=== PATIENT | male | born 1990 | race American Indian/Alaskan Native ===

== ENCOUNTER 2020-03-14 23:45 | Emergency (ER) | payer BC ==
[2020-03-15] MEDS ORDERED: ACETAMINOPHEN 325 MG TAB ONE (00:34)
[2020-03-15] MEDS ORDERED: ACETAMINOPHEN 325 MG TAB PO ONE (00:42)
--- NOTE | 2020-03-15 00:53 | XRay Report ---
EXAMINATION: Left shoulder radiograph, 2 views, 03/14/2020 CLINICAL INFORMATION: Left shoulder pain COMPARISON: None. FINDINGS: There is no evidence of acute fracture or glenohumeral dislocation. No significant bony deg enerative changes are noted. Signer Name: Shazia Iglesias MD Signed: 03/15/2020 12:48 AM Workstation Name: [id number]
[2020-03-15] MEDS ORDERED: IBUPROFEN 600 MG TAB PO ONE (03:43)
[2020-03-15] MEDS ORDERED: oxyCODONE /ACETAMINOPHEN 5-325MG TAB PO ONE (03:43)
[2020-03-15] MEDS ORDERED: ONDANSETRON 4 MG ODT TAB PO ONE (03:43)
--- NOTE | 2020-03-15 04:22 | Emergency Department Report ---
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 Patient states that the symptoms started about 4 hours ago when he was playing with his children and he realized that his shoulder may have had a dislocation. Patient states that he then tried to reset the dislocated left shoulder before coming to the ED for evaluation. Patient states that he is unable to perform any active range of motion due to severe pain of the left shoulder. Patient denies fall, dizziness, syncope, neck pain, chest pain, shortness of breath, change in vision, syncope, numbness and tingling or weakness of left arm, back pain, change in vision, heavy lifting or fever and chills. MD Complaint: Injury to:: left, shoulder -: Sudden, hour(s) (6) Other Extremity Injury: Shoulder: Left (pain ) Other Injuries: none Handedness: left Place: home Severity scale (0 -10): 8 Improves With: none Worsens With: movement of extremity Context: sports-related injury (playing with children) Associated Symptoms: denies other symptoms. denies: weakness, numbness, neck pain, suspects foreign body, nausea/vomiting, heard/felt popping sensat - Related Data Previous Rx's Medication Instructions Recorded Last Taken Type Ibuprofen [Motrin] 800 mg PO Q8HR PRN #30 tablet 03/15/20 Unknown Rx methOCARBAMOL [Robaxin TAB] 500 mg PO BID PRN #20 tab 03/15/20 Unknown Rx traMADoL [Ultram] 50 mg PO Q6HR PRN #12 tablet 03/15/20 Unknown Rx Allergies Allergy/AdvReac Type Severity Reaction Status Date / Time No Known Allergies Allergy Unverified 03/15/20 00:08 ED Review of Systems ROS: Stated complaint: LEFT ARM DISLOCATED Other details as noted in HPI Constitutional: denies: chills, fever Eyes: denies: eye pain, eye discharge, vision change ENT: denies: ear pain, throat pain Respiratory: denies: cough, shortness of breath, wheezing Cardiovascular: denies: chest pain, palpitations Endocrine: no symptoms reported Gastrointestinal: denies: abdominal pain, nausea, diarrhea Genitourinary: denies: urgency, dysuria Musculoskeletal: arthralgia (Left shoulder pain). denies: back pain, joint swelling Skin: denies: rash, lesions Neurological: denies: headache, weakness, paresthesias Psychiatric: denies: anxiety, depression Hematological/Lymphatic: denies: easy bleeding, easy bruising ED Past Medical Hx - Past Medical History Previous Medical History?: Yes Additional medical history: Left shoulder Dislocation - Surgical History Past Surgical History?: No - Social History Smoking Status: Never Smoker Substance Use Type: None - Medications Home Medications: Home Medications Medication Instructions Recorded Confirmed Last Taken Type Ibuprofen [Motrin] 800 mg PO Q8HR PRN #30 tablet 03/15/20 Unknown Rx methOCARBAMOL [Robaxin TAB] 500 mg PO BID PRN #20 tab 03/15/20 Unknown Rx traMADoL [Ultram] 50 mg PO Q6HR PRN #12 tablet 03/15/20 Unknown Rx ED Physical Exam - General Limitations: No Limitations General appearance: alert, in no apparent distress - Head Head exam: Present: atraumatic, normocephalic, normal inspection - Eye Eye exam: Present: normal appearance, PERRL, EOMI Pupils: Present: normal accommodation - ENT ENT exam: Present: normal exam, normal orophraynx, mucous membranes moist, TM's normal bilaterally, normal external ear exam - Neck Neck exam: Present: normal inspection, full ROM - Respiratory Respiratory exam: Present: normal lung sounds bilaterally. Absent: respiratory distress, wheezes, rales, stridor, chest wall tenderness, accessory muscle use, prolonged expiratory - Cardiovascular Cardiovascular Exam: Present: regular rate, normal rhythm, normal heart sounds. Absent: systolic murmur, diastolic murmur, rubs, gallop - GI/Abdominal GI/Abdominal exam: Present: soft, normal bowel sounds. Absent: distended, guarding, rebound, hyperactive bowel sounds, hypoactive bowel sounds, organomegaly - Extremities Exam Extremities exam: Present: normal inspection, tenderness (Palpable left shoulder tenderness with limited range of motion due to pain), normal capillary refill. Absent: full ROM (Limited range of motion of left shoulder due to pain), pedal edema, joint swelling, calf tenderness - Back Exam Back exam: Present: normal inspection, tenderness. Absent: full ROM, muscle spasm, paraspinal tenderness, vertebral tenderness - Neurological Exam Neurological exam: Present: alert, oriented X3, CN II-XII intact, normal gait, reflexes normal - Psychiatric Psychiatric exam: Present: normal affect, normal mood, anxious - Skin Skin exam: Present: warm, dry, intact, normal color. Absent: rash ED Course Vital Signs 03/15/20 00:04 Temperature 98.3 F Pulse Rate 68 Respiratory 18 Rate Blood Pressure 125/71 O2 Sat by Pulse 99 Oximetry ED Medical Decision Making - Radiology Data Radiology results: report reviewed, image reviewed Findings [facility] [address] [place] [address] XRay Report Signed Patient: IDNU MYRICK MR#: [id number] : 1990 Acct:[id number] Age/Sex: 29 / M ADM Date: 03/14/20 Loc: ED Attending Dr: Ordering Physician: ED MD ROB Date of Service: 03/15/20 Procedure(s): XR shoulder 2+V LT Accession Number(s): [id number] cc: ED DOCMD Fluoro Time In Minutes: EXAMINATION: Left shoulder radiograph, 2 views, 03/14/2020 CLINICAL INFORMATION: Left shoulder pain COMPARISON: None. FINDINGS: There is no evidence of acute fracture or glenohumeral dislocation. No significant bony degenerative changes are noted. 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 Patient states that the symptoms started about 4 hours ago when he was playing with his children and he realized that his shoulder may have had a dislocation. Patient states that he then tried to reset the dislocated left shoulder before coming to the ED for evaluation. Patient states that he is unable to perform any active range of motion due to severe pain of the left shoulder. In the ED, patient is alert and oriented x3 and is not in distress. Patient however appears to be in significant pain. Patient was treated for pain in the ED and left shoulder x-ray shows no acute fractures or subluxations. Patient already had an arm sling. Patient was therefore advised to follow-up with his orthopedic surgeon for further evaluation. Patient was discharged home on pain medications and muscle relaxants. Patient was advised return to the ED immediately if symptoms get worse. - Differential Diagnosis Shoulder sprain; muscle strain; shoulder contusion; dislocation Critical care attestation.: If time is entered above; I have spent that time in minutes in the direct care of this critically ill patient, excluding procedure time. ED Disposition Clinical Impression: Sprain of left shoulder Qualifiers: Encounter type: initial encounter Shoulder sprain type: coracohumeral ligament Qualified Code(s): S43.412A - Sprain of left coracohumeral (ligament), initial encounter Muscle strain of left upper extremity Qualifiers: Encounter type: initial encounter Qualified Code(s): S46.912A - Strain of unspecified muscle, fascia and tendon at shoulder and upper arm level, left arm, initial encounter Disposition: TO HOME OR SELFCARE Is pt being admited?: No Does the pt Need Aspirin: No Condition: Stable Instructions: Muscle Strain, [id number], Shoulder Sprain Additional Instructions: The x-ray of your left shoulder shows no acute fractures or subluxations. Therefore take medications with food, drink plenty of fluids and follow-up with your primary care physician in 5 to 7 days for reevaluation. Return to the ED immediately if symptoms get worse. Prescriptions: Ibuprofen [Motrin] 800 mg PO Q8HR PRN #30 tablet PRN Reason: Pain , Severe (7-10) methOCARBAMOL [Robaxin TAB] 500 mg PO BID PRN #20 tab PRN Reason: Muscle Spasm traMADoL [Ultram] 50 mg PO Q6HR PRN #12 tablet PRN Reason: Pain Referrals: [facility] [Provider Group] - 3-5 Days Forms: Work/School Release Form(ED) Time of Disposition: 04:25 Print Language: CHILEAN
[2020-03-15 05:34] VITALS: BP 120/77
== END 2020-03-15 05:05 | disposition home or self-care (01) ==
LOC: ED 23:45
DX: S43.402A Unspecified sprain of left shoulder joint, initial encounter (principal); S46.912A Strain of unspecified muscle, fascia and tendon at shoulder and upper arm level, left arm, initial encounter; Z79.1 Long term (current) use of non-steroidal anti-inflammatories (NSAID); Z79.899 Other long term (current) drug therapy; X58.XXXA Exposure to other specified factors, initial encounter; Y93.89 Activity, other specified; Y92.89 Other specified places as the place of occurrence of the external cause; Y99.8 Other external cause status
CPT/HCPCS: Q0162